=== PATIENT | female | born 1970 ===

== ENCOUNTER 2016-12-28 02:03 | Emergency (ER) | payer MEDICAID, OTHER ==
[2016-12-28 02:21] VITALS: BP 136/92; PULSE 66; RESP 18; TEMP 98; O2SAT 99
--- NOTE | 2016-12-28 03:59 | ED PDOC ---
HPI: General Adult Time Seen by Provider: 12/28/16 02:30 Chief Complaint (Nursing): Anxiety Chief Complaint (Provider): Left Neck, Shoulder and Arm Pain History Per: Patient History/Exam Limitations: no limitations Onset/Duration Of Symptoms: Other (x6 months) Have you had recent travel within the past 21 days to any of the following countries: [place], [place], [place] or [place]?: No Current Symptoms Are (Timing): Still Present Additional Complaint(s): Soraya Melton, a 46 year old female, presents to the ED complaining of intermittent left neck, shoulder and arm pain x6 months. The patient states that pain woke her up from her sleep and she is concerned because the pain is much stronger than usual. She states that the pain is exacerbated by moving her left arm. Denies injury. Past Medical History Reviewed: Historical Data, Nursing Documentation, Vital Signs Vital Signs: Last Vital Signs Temp 98 F 12/28/16 02:11 Pulse 66 12/28/16 02:11 Resp 18 12/28/16 02:11 BP 136/92 H 12/28/16 02:11 Pulse Ox 99 12/28/16 04:05 - Medical History PMH: No Chronic Diseases - Surgical History Surgical History: No Surg Hx - Family History Family History: States: Unknown Family Hx - Immunization History Hx Tetanus Toxoid Vaccination: No Hx Influenza Vaccination: No Hx Pneumococcal Vaccination: No - Home Medications Home Medications: Ambulatory Orders Medication Instructions Recorded Nitrofurantoin Macrocrystals 100 mg PO BID #14 tab 03/04/16 [Macrobid] Omeprazole Magnesium [Prilosec Otc] 20 mg PO DAILY #30 tab 03/04/16 Cyclobenzaprine [Cyclobenzaprine 10 mg PO BID #15 tab 12/28/16 HCl] Ibuprofen [Motrin Tab] 600 mg PO Q6 #30 tab 12/28/16 - Allergies Allergies/Adverse Reactions: Allergies Allergy/AdvReac Type Severity Reaction Status Date / Time No Known Allergies Allergy Verified 03/04/16 14:44 Review of Systems ROS Statement: Except As Marked, All Systems Reviewed And Found Negative Musculoskeletal: Positive for: Neck Pain, Shoulder Pain, Arm Pain Physical Exam - Reviewed Nursing Documentation Reviewed: Yes Vital Signs Reviewed: Yes - Physical Exam Appears: Positive for: Non-toxic, No Acute Distress Head Exam: Positive for: ATRAUMATIC, NORMAL INSPECTION, NORMOCEPHALIC Skin: Positive for: Normal Color, Warm, Dry Eye Exam: Positive for: Normal appearance, EOMI, PERRL ENT: Positive for: Normal ENT Inspection Neck: Positive for: Normal, Painless ROM, Supple Cardiovascular/Chest: Positive for: Regular Rate, Rhythm, Chest Non Tender. Negative for: Tachycardia Respiratory: Positive for: Normal Breath Sounds. Negative for: Wheezing, Respiratory Distress Gastrointestinal/Abdominal: Positive for: Normal Exam, Bowel Sounds, Soft. Negative for: Tenderness Back: Positive for: Normal Inspection Extremity: Positive for: Tenderness (Tenderness to palpation to trapezius and deltoid.), Other (increase pain upon active ar raise). Negative for: Normal ROM (Near full ROM of left upper extremity.), Deformity, Swelling Neurologic/Psych: Positive for: Alert, Oriented - ECG O2 Sat by Pulse Oximetry: 99 (RA) Pulse Ox Interpretation: Normal Medical Decision Making Medical Decision Makin Initial Impression: 46 year old female presenting with musculoskeletal pain Initial Plan: * Flexeril 10mg PO * Toradol 30mg IM * Reevaluation 0345 PT. feeling much better, asking to be discharged. Scribe Attestation Documented by Richa Johnson acting as a scribe for Carlos Rich MD. Provider Attestation All medical record entries made by the Scribe were at my direction and personally dictated by me. I have reviewed the chart and agree that the record accurately reflects my personal performance of the history, physical exam, medical decision making, and the department course for this patient. I have also personally directed, reviewed, and agree with the discharge instructions and disposition. Disposition - Clinical Impression Clinical Impression: Muscle pain - Disposition Referrals: [facility] [Outside] Disposition: Routine/Home Disposition Time: 03:45 Condition: STABLE Prescriptions: Cyclobenzaprine [Cyclobenzaprine HCl] 10 mg PO BID #15 tab Ibuprofen [Motrin Tab] 600 mg PO Q6 #30 tab Instructions: Cervical Strain (GEN), Musculoskeletal Pain (ED) Print Language: PERSIAN
--- NOTE | 2017-01-04 10:42 | CARD ---
APPROVED REPORT EKG Measurement Heart [id number] <Conclusion> Normal sinus rhythm Normal ECG
== END 2016-12-28 03:56 | disposition home or self-care (01) ==
LOC: H.ER 02:03
DX: F41.9 Anxiety disorder, unspecified (principal)